=== PATIENT | male | born 1935 | race African-American/Black ===

== ENCOUNTER 2022-08-03 03:52 | Inpatient (IN) | payer OTHER ==
[~2022-08-03] VITALS: Ht 170.2 cm; Wt 59.1 kg
[~2022-08-03 03:52] MED LIST: ALPR-340 PO; ASPI-1497 PO; ASPI-867 PO; FURO20TA4 PO; IBUP-1653 PO; METO-539 PO; PIOG45TA5 PO; VALS320T2 PO
[2022-08-03] MEDS ORDERED: HYDRALAZINE 20MG/ML VIAL IV ONE (04:45)
[2022-08-03 04:54] LABS: BASOPHILS % 0.4 % (0.0-2.0); EOSINOPHILS % 0.5 % (0.0-5.0); HEMATOCRIT. 26.7 % (42.0-52.0); LYMPHOCYTES % 14.6 % (20.0-50.0); MEAN CORPUSCULAR HEMOGLOBIN 29.6 pg (28.0-32.0); MEAN CORPUSCULAR VOLUME 88.4 fL (80.0-94.0); MEAN PLATELET VOLUME 5.5 fl (7.4-10.4); MONOCYTES % 8.4 % (2.0-8.0); NEUTROPHILS % 76.1 % (40.0-76.0); PLATELET 251 x1000/uL (130-400); RED BLOOD CELL COUNT 3.02 mill/uL (4.7-6.1); RED CELL DISTRIBUTION WIDTH 12.1 % (11.6-14.6)
[2022-08-03 05:00] LABS: CHLORIDE 90 mEq/L (98-107)
[2022-08-03] MEDS ORDERED: ZOLPIDEM TARTRATE 5MG TABLET PO PRN (15:45)
[2022-08-03] MEDS ORDERED: ACETAMINOPHEN 325MG TABLET PO PRN (15:45)
[2022-08-03] MEDS ORDERED: GUAIFENESIN 200MG/10ML SUGAR FREE UDC PO PRN (15:45)
[2022-08-03] MEDS ORDERED: MAGNESIUM/ALUMINUM HYDROXIDE/SIMETHICONE 30ML UDC PO PRN (15:45)
[2022-08-03] MEDS ORDERED: ONDANSETRON HCL 4MG/2ML INJ IV PRN (15:45)
[2022-08-03] MEDS ORDERED: IPRATROPIUM/ALBUTEROL 0.5-3(2.5)MG/3ML NEB HHN PRN (15:45)
[2022-08-03] MEDS ORDERED: DIPHENHYDRAMINE 50MG/ML VIAL IV PRN (15:45)
[2022-08-03] MEDS: SODIUM CHLORIDE 0.9% 1,000 ML IV SCH (16:52)
[2022-08-03] MEDS: CLONIDINE 0.1MG TABLET PO PRN (18:27)
[2022-08-03 22:00] VITALS: BP 164/74
[2022-08-04] VITALS (8 sets, daily range): BP systolic 142–197; BP diastolic 62–97
[2022-08-04] MEDS: SODIUM CHLORIDE 0.9% 1,000 ML IV SCH ×3 (01:08→22:15)
[2022-08-04 06:52] LABS: BASOPHILS % 0.6 % (0.0-2.0); EOSINOPHILS % 1.8 % (0.0-5.0); HEMATOCRIT. 27.7 % (42.0-52.0); HEMOGLOBIN. 9.3 g/dL (14.0-18.0); LYMPHOCYTES % 16.6 % (20.0-50.0); MEAN CORPUSCULAR HEMOGLOBIN 29.7 pg (28.0-32.0); MEAN CORPUSCULAR VOLUME 88.2 fL (80.0-94.0); MEAN PLATELET VOLUME 5.7 fl (7.4-10.4); MONOCYTES % 9.2 % (2.0-8.0); NEUTROPHILS % 71.8 % (40.0-76.0); PLATELET 273 x1000/uL (130-400); RED BLOOD CELL COUNT 3.14 mill/uL (4.7-6.1)
[2022-08-04 07:19] LABS: CHLORIDE 96 mEq/L (98-107)
[2022-08-04 07:25] LABS: PHOSPHORUS 3.5 mg/dL (2.5-4.9)
[2022-08-04] MEDS ORDERED: SODIUM BICARBONATE 8.4% 1 MEQ/ML 50ML SYR IV NR (09:30)
[2022-08-04] MEDS ORDERED: DEXTROSE 50% WATER 50ML SYRINGE IV NR (09:30)
[2022-08-04] MEDS ORDERED: INSULIN REGULAR (HUMULIN R) 300UNITS/3ML VIAL IV NR (09:30)
[2022-08-04] MEDS: ASPIRIN 81MG EC TABLET PO SCH (09:56)
[2022-08-04] MEDS ORDERED: CALCIUM CHLORIDE 1,000 MG in DEXT 5% WATER 90 ML IV NR (10:30)
[2022-08-04] MEDS: CLONIDINE 0.1MG TABLET PO PRN ×2 (12:11→20:32)
[2022-08-04] MEDS ORDERED: LISI20TA31 PO (14:09)
[2022-08-04] MEDS ORDERED: LOSA50TA41 PO (14:09)
[2022-08-04] MEDS ORDERED: ISOS40TA17 MT (14:09)
[2022-08-05] VITALS: BP 170/84
[2022-08-05] MEDS: AMLODIPINE 10MG TABLET PO SCH ×2 (01:22→08:51)
[2022-08-05 04:00] VITALS: BP 144/53
[2022-08-05 06:13] LABS: BASOPHILS % 0.4 % (0.0-2.0); EOSINOPHILS % 1.6 % (0.0-5.0); HEMATOCRIT. 26.9 % (42.0-52.0); HEMOGLOBIN. 9.2 g/dL (14.0-18.0); LYMPHOCYTES % 8.4 % (20.0-50.0); MEAN CORPUSCULAR HEMOGLOBIN 30.2 pg (28.0-32.0); MEAN CORPUSCULAR VOLUME 87.9 fL (80.0-94.0); MEAN PLATELET VOLUME 5.7 fl (7.4-10.4); MONOCYTES % 10.2 % (2.0-8.0); NEUTROPHILS % 79.4 % (40.0-76.0); PLATELET 255 x1000/uL (130-400); RED BLOOD CELL COUNT 3.06 mill/uL (4.7-6.1); RED CELL DISTRIBUTION WIDTH 12.1 % (11.6-14.6)
[2022-08-05] MEDS: SODIUM CHLORIDE 0.9% 1,000 ML IV SCH ×2 (07:45→18:15)
[2022-08-05 08:00] VITALS: BP 144/53
[2022-08-05] MEDS: ASPIRIN 81MG EC TABLET PO SCH (08:52)
[2022-08-05 10:02] LABS: CHLORIDE 98 mEq/L (98-107)
[2022-08-05 12:00] VITALS: BP 116/72
[2022-08-05 16:00] VITALS: BP 116/72
[2022-08-05 20:00] VITALS: BP 128/71
[2022-08-06] VITALS (7 sets, daily range): BP systolic 142–162; BP diastolic 73–97
[2022-08-06] MEDS: SODIUM CHLORIDE 0.9% 1,000 ML IV SCH ×2 (04:50→14:11)
[2022-08-06] MEDS: ACETAMINOPHEN 325MG TABLET PO PRN ×2 (08:50→16:46)
[2022-08-06] MEDS: ASPIRIN 81MG EC TABLET PO SCH (08:50)
[2022-08-06] MEDS: AMLODIPINE 10MG TABLET PO SCH (08:51)
[2022-08-06 11:40] LABS: CHLORIDE 103 mEq/L (98-107)
== END 2022-08-06 21:53 | DRG 291 ==
LOC: ER 03:52 → MICUSO 07:18 → EDBEDREQ 08:23 → EDBEDREQTM 08:23 → 3WST 21:46
PROVIDERS: ADMIT Internal Medicine; ATTEND Internal Medicine
DX: I11.0 Hypertensive heart disease with heart failure (principal); I50.33 Acute on chronic diastolic (congestive) heart failure; E87.1 Hypo-osmolality and hyponatremia; N17.9 Acute kidney failure, unspecified; R07.89 Other chest pain; Z20.822 Contact with and (suspected) exposure to COVID-19; E86.0 Dehydration; E87.5 Hyperkalemia; J45.909 Unspecified asthma, uncomplicated; M19.90 Unspecified osteoarthritis, unspecified site; E16.2 Hypoglycemia, unspecified; Z88.0 Allergy status to penicillin; Z82.49 Family history of ischemic heart disease and other diseases of the circulatory system; D64.9 Anemia, unspecified
CPT/HCPCS: 36415; 71045; 80048; 80053; 82962; 83036; 83735; 83880; 84100; 84439; 84443; 84484; 85025; 87426; 93005; 93306; 97162; 99285; J1815; J2405; J3490; J7030; J7060